=== PATIENT | female | born 1985 | race Caucasian/White ===

== ENCOUNTER 2020-05-22 00:14 | Emergency (ER) | payer BC, OTHER ==
[2020-05-22 00:55] LABS: RED BLOOD COUNT 4.78 M/UL (4.00-5.10); WHITE BLOOD COUNT 5.1 K/UL (4.5-11.0)
[2020-05-22 01:12] LABS: BUN/CREATININE RATIO 15 (0-10)
[2020-05-22] MEDS ORDERED: AUGMENTIN 875-1 EACH PO (02:47)
== END 2020-05-22 03:00 | disposition home or self-care (01) ==
LOC: ER1 00:14
PROVIDERS: Physician Assistant
DX: J02.0 Streptococcal pharyngitis (principal); I10 Essential (primary) hypertension; Z20.822 Contact with and (suspected) exposure to COVID-19; Z79.899 Other long term (current) drug therapy
CPT/HCPCS: 0240U; 71045; 80053; 81001; 82550; 82553; 83874; 84484; 84703; 85025; 87081; 87086; 87880; 93005; 99284

== ENCOUNTER 2020-07-12 18:06 | Emergency (ER) | payer BC, OTHER ==
[~2020-07-12 18:06] MED LIST: AUGMENTIN 875-1 EACH PO
[2020-07-12 19:25] LABS: HEMOGLOBIN 11.4 gm/dl (12.3-15.3); RED BLOOD COUNT 4.24 M/UL (4.00-5.10); WHITE BLOOD COUNT 8.6 K/UL (4.5-11.0)
[2020-07-12 19:47] LABS: BUN/CREATININE RATIO 15 (0-10)
[2020-07-12] MEDS ORDERED: PROVERA10 MG PO (20:51)
[2020-07-12] MEDS ORDERED: FEOSOL325 MG PO (20:51)
== END 2020-07-12 21:05 | disposition home or self-care (01) ==
LOC: ER1 18:06
PROVIDERS: Physician Assistant
DX: N93.9 Abnormal uterine and vaginal bleeding, unspecified (principal); D64.9 Anemia, unspecified; K21.9 Gastro-esophageal reflux disease without esophagitis; Z79.899 Other long term (current) drug therapy
CPT/HCPCS: 80053; 81001; 84703; 85025; 99284

== ENCOUNTER 2020-09-16 11:22 | Emergency (ER) | payer BC, OTHER ==
[~2020-09-16 11:22] MED LIST changes: +FEOSOL325 MG PO; +PROVERA10 MG PO
[2020-09-16 12:15] LABS: HEMOGLOBIN 11.4 gm/dl (12.3-15.3); RED BLOOD COUNT 4.65 M/UL (4.00-5.10); WHITE BLOOD COUNT 6.3 K/UL (4.5-11.0)
[2020-09-16 12:38] LABS: BUN/CREATININE RATIO 16 (0-10)
== END 2020-09-16 14:16 | disposition home or self-care (01) ==
LOC: ER1 11:22
PROVIDERS: Physician Assistant
DX: R10.30 Lower abdominal pain, unspecified (principal); R19.7 Diarrhea, unspecified; Z79.899 Other long term (current) drug therapy; Z90.89 Acquired absence of other organs
CPT/HCPCS: 80053; 81001; 84703; 85025; 96374; 96375; 99284; J2270; J2405; J7030; Q9967

== ENCOUNTER 2020-11-02 15:35 | Emergency (ER) | payer BC ==
[2020-11-02] MEDS ORDERED: ERYTHROMYCIN OP1 GM OP (17:43)
[2020-11-02] MEDS ORDERED: HYDROCODON-ACE1 EAC4 PO (17:43)
== END 2020-11-02 17:52 | disposition home or self-care (01) ==
LOC: ER1 15:35
DX: S05.01XA Injury of conjunctiva and corneal abrasion without foreign body, right eye, initial encounter (principal); J45.909 Unspecified asthma, uncomplicated; W22.8XXA Striking against or struck by other objects, initial encounter
CPT/HCPCS: 99283

== ENCOUNTER 2021-06-25 21:41 | Emergency (ER) | payer OTHER ==
[~2021-06-25 21:41] MED LIST changes: +ERYTHROMYCIN OP1 GM OP; +HYDROCODON-ACE1 EAC4 PO
[2021-06-25 23:08] LABS: HEMOGLOBIN 13.7 gm/dl (12.3-15.3); RED BLOOD COUNT 5.06 M/UL (4.00-5.10); WHITE BLOOD COUNT 9.4 K/UL (4.5-11.0)
[2021-06-25 23:29] LABS: BUN/CREATININE RATIO 16 (0-10)
[2021-06-26] MEDS ORDERED: DULCOLAX5 MG PO (03:55)
[2021-06-26] MEDS ORDERED: MAGNESIUM CITR296 ML PO (03:55)
== END 2021-06-26 04:06 | disposition home or self-care (01) ==
LOC: ER1 21:41
PROVIDERS: Physician Assistant
DX: N83.202 Unspecified ovarian cyst, left side (principal); K59.00 Constipation, unspecified
CPT/HCPCS: 80053; 81001; 83690; 84703; 85025; 99284; Q9967